=== PATIENT | male | born 1970 | race Two or more races ===

== ENCOUNTER 2019-07-04 19:55 | Emergency (ER) | payer BC ==
[~2019-07-04] VITALS: Ht 160 cm; Wt 86.2 kg
--- NOTE | 2019-07-04 20:53 | NUR ---
BIBS FROM HOME TO ER BED 7. AAOX4. NOT IN RESP DISTRESS. BREATHING EVEN AND UNLABORED. AMBULATORY ON STEADY GAIT. CAME IN FOR A SYNCOPAL EPISODE ON MOPNDAY. PER PT, HE FELT DIZZY AND THEN FAINTED FOR A QUICK MOMENT. PT REPORTS THAT HE FELL ON HIS R HIP CAUSEING HIM PAIN, ROM AND SENSATIONS INTACT. DENIES HITTING HIS HEAD. PT ALSO DENIES ANY CHEST PAIN. SHARYN QURESHI AT BEDSIDE FOR EVAL. ORDERS RECEIVED, NOTED AND CARRIED OUT. IV LINE OBTAINED ON LEFT AC 18G. BLOOD DRAWN AND GIVEN TO PROFESSIONAL DEVELOPMENT INSTRUCTOR. PT ON MONITOR. WILL CONTINUE TO MONITOR.
[2019-07-04 20:54] LABS: BASOPHILS % (AUTO) 0.5 % (0.0-2.0); EOSINOPHILS % (AUTO) 0.8 % (0.0-6.0); HEMATOCRIT 44 % (39-51); HEMOGLOBIN 14.8 g/dL (13.5-17.5); LYMPHOCYTES # (AUTO) 2.4 /CMM (0.8-4.8); LYMPHOCYTES % (AUTO) 25.8 % (20.0-44.0); MEAN CORPUSCULAR HGB CONC 34 g/dl (31.0-36.0); MEAN CORPUSCULAR VOLUME 91 fL (80-96); MONOCYTES # (AUTO) 0.7 /CMM (0.1-1.30); MONOCYTES % (AUTO) 7.6 % (2.0-12.0); NEUTROPHILS # (AUTO) 6.1 /CMM (1.8-8.9); NEUTROPHILS % (AUTO) 65.3 % (43.0-81.0); PLATELET COUNT (AUTO) 241 /CMM (150-450); RED BLOOD CELL COUNT(AUTO) 4.81 MIL/uL (4.5-6.0); WHITE BLOOD COUNT (AUTO) 9.4 K/uL (4.3-11.0)
[2019-07-04 21:07] LABS: CALCIUM, SERUM 8.8 mg/dL (8.5-10.1); CARBON DIOXIDE 29 mmol/L (21-32); CHLORIDE 104 mmol/L (98-107); CREATININE 1.1 mg/dL (0.6-1.3); GLUCOSE 94 mg/dL (74-106); POTASSIUM 3.8 mmol/L (3.5-5.1); SODIUM SERUM 139 mmol/L (136-145); UREA NITROGEN, BLOOD 14 mg/dL (7-18)
[2019-07-04 21:12] LABS: ALANINE AMINOTRANSFERASE 43 U/L (12-78); ALBUMIN 3.9 g/dL (3.4-5.0); ALKALINE PHOSPHATASE 80 U/L (46-116); ASPARTATE AMINOTRANSFERASE 17 U/L (15-37); BILIRUBIN,DIRECT 0.1 mg/dL (0.0-0.2); BILIRUBIN,TOTAL 0.3 mg/dL (0.2-1.0); TOTAL PROTEIN, SERUM 7.5 g/dL (6.4-8.2)
--- NOTE | 2019-07-04 22:19 | NUR ---
Femi rolon in [facility] - 07/04/19 at 2220 by JEAN PT MEDICALLY CLEARED FOR DISCHARGE BACK TO [facility] MD.
--- NOTE | 2019-07-04 22:48 | NUR ---
Covid swab done and sent to stat lab
--- NOTE | 2019-07-04 22:50 | NUR ---
Patient discharged to home in stable condition. Written and verbal after care instructions given. Patient verbalizes understanding of instruction.IV removed. Catheter intact and site benign. Pressure and 4x4 applied to site. No bleeding noted. Pt ambulatory with a steady gait
[2019-07-04 22:52] VITALS: BP 157/92
== END 2019-07-04 22:53 | disposition home or self-care (01) ==
LOC: ER 19:55
DX: R55 Syncope and collapse (principal); R07.89 Other chest pain; R53.83 Other fatigue; Z20.828 Contact with and (suspected) exposure to other viral communicable diseases; R39.198 Other difficulties with micturition
CPT/HCPCS: 36415; 71045; 80048; 80076; 84484; 85025; 93005; 99285; U0003